=== PATIENT | male | born 1955 | race Caucasian/White ===

== ENCOUNTER 2019-11-09 19:04 | Emergency (ER) | payer OTHER ==
[~2019-11-09] VITALS: Ht 177.8 cm; Wt 88.6 kg
[2019-11-09 19:29] VITALS: BP 131/76
[2019-11-09] MEDS ORDERED: AMOX500C2 PO (19:50)
== END 2019-11-09 20:05 | disposition home or self-care (01) ==
LOC: ER 19:05
DX: H66.92 Otitis media, unspecified, left ear (principal)
CPT/HCPCS: 99283